=== PATIENT | male | born 1985 | race Caucasian/White ===

== ENCOUNTER → 2022-02-03 | Outpatient (CLI) | payer OTHER, SELFPAY | END | disposition home or self-care (01) | PROVIDERS: Referring Provider Otolaryngology; Visit Provider Otolaryngology | DX: G47.33 Obstructive sleep apnea (adult) (pediatric) (principal); R06.83 Snoring | CPT/HCPCS: 95810 ==

== ENCOUNTER → 2024-05-05 | Outpatient (CLI) | payer BC, SELFPAY ==
[2024-05-05 12:33] LABS: Vitamin B12 821 pg/mL (211-911); Vitamin D,25 Hydroxy 43.8 ng/mL
[2024-05-05 12:47] LABS: Absolute Neutrophil Count 4.3 X10^3/uL (2.0-7.7); Basophil# 0.03 X10^3/uL; Basophil% 0.5 % (0-1); Eosinophil# 0.04 X10^3/uL; Eosinophils% 0.6 % (0-5); Hematocrit 33.3 % (40-54); Lymphocyte % 19.4 % (19-41); Mean Corpuscular Hgb 21.6 pg (27.0-32.0); Mean Corpuscular Volume 71.8 fL (80-94); Mean Platelet Vol. 9.8 fl (6.2-12.0); Monocyte# 0.58 X10^3/uL; Monocyte% 9.4 % (0-10); NRBC Flagged by Analyzer 0 % (0-5); Neutrophil # 4.31 X10^3/uL (2.7-7.7); Neutrophil % 69.9 % (47-70); Platelet Count 433 K/mm3 (150-450); RBC Distribution Width CV 16.8 % (11.6-14.6); RBC Distribution Width SD 42.3 fl (35.1-43.9); Red Blood Count 4.64 M/mm3 (4.6-6.2); White Blood Count 6.2 K/mm3 (4.4-11.0)
== END | disposition home or self-care (01) ==
LOC: MFPLAB 10:20
PROVIDERS: PCP Family Medicine; Referring Provider Family Medicine; Visit Provider Family Medicine
DX: D64.9 Anemia, unspecified (principal)
CPT/HCPCS: 36415; 82306; 82607; 82746; 85025

== ENCOUNTER → 2024-06-22 | Outpatient (CLI) | payer BC, SELFPAY ==
[2024-06-22 17:50] LABS: Absolute Lymphocyte Count 1.73 X10^3/uL (0.83-4.51); Absolute Neutrophil Count 4.9 X10^3/uL (2.0-7.7); Basophil# 0.03 X10^3/uL; Basophil% 0.4 % (0-1); Eosinophil# 0.04 X10^3/uL; Eosinophils% 0.6 % (0-5); Hematocrit 43.4 % (40-54); Hemoglobin 14.1 g/dL (13.0-16.5); Lymphocyte # 1.73 X10^3/ul (0.83-4.51); Lymphocyte % 23.9 % (19-41); Mean Corp Hgb Conc 32.5 g/dL (32-36); Mean Corpuscular Hgb 25.4 pg (27.0-32.0); Mean Corpuscular Volume 78.1 fL (80-94); Mean Platelet Vol. 9.5 fl (6.2-12.0); Monocyte# 0.51 X10^3/uL; Monocyte% 7.1 % (0-10); NRBC Flagged by Analyzer 0 % (0-5); Neutrophil % 67.7 % (47-70); POSITIVE MORPHOLOGY YES; Platelet Count 313 K/mm3 (150-450); RBC Distribution Width SD 66.3 fl (35.1-43.9); Red Blood Count 5.56 M/mm3 (4.6-6.2); White Blood Count 7.2 K/mm3 (4.4-11.0)
[2024-06-22 18:14] LABS: Differential Indicated SCAN CRITERIA MET
[2024-06-22 18:16] LABS: Platelet Estimate ADEQUATE (ADEQ); Red Cell Morphology N CHROM NORMAL (NORM C&C)
[2024-06-22 18:17] LABS: Anisocytosis 1+
[2024-06-22 18:18] LABS: Microcytosis RARE
[2024-06-22 18:22] LABS: ALB/GLOB Ratio 1.5 RATIO (0.9-2.4); AST(SGOT) 18 U/L (<=37); Alanine Aminotransfer ALT/SGPT 17 U/L (<=46); Albumin, Serum 4.6 g/dL (3.5-5.0); Alkaline Phosphatase 52 U/L (40-129); Anion Gap 15 (5-15); BUN 12 mg/dL (4-19); BUN/Creat Ratio 12.8 RATIO (10-20); Calcium,Total 9.4 mg/dL (7.6-11.0); Carbon Dioxide 20.3 mmol/L (21.0-32.0); Chloride 104 mmol/L (98-108); Creatinine, Serum 0.95 mg/dL (0.70-1.20); EST Glomerular Filtration Rate 107 (>60); Ferritin 32 ng/mL (37-417); Globulin 3.1 g/dL (2.2-4.2); Glucose 93 mg/dL (70-99); Iron 186 ug/dL (65-175); Iron Binding Capacity,Total 366 ug/dL (250-450); Iron Binding Capacity,Unsat 180 ug/dL (228-428); Lipase 17 U/L (13-75); Potassium 3.9 mmol/L (3.3-5.1); Protein, Total 7.7 g/dL (5.9-8.4); Sodium Level 138 mmol/L (133-145); Total Bilirubin 0.57 mg/dL (0.00-1.30)
[2024-06-24 15:08] LABS: Endomysial Antibody IgA Negative (Negative); GGTP 13 IU/L (0-65); Immunoglobulin A 253 mg/dL (90-386); t-Transglutaminase IgA <2 U/mL (0-3)
== END | disposition home or self-care (01) ==
LOC: MTLAB 16:56
PROVIDERS: PCP Family Medicine; Referring Provider Family Medicine; Visit Provider Family Medicine
DX: D64.9 Anemia, unspecified (principal)
CPT/HCPCS: 36415; 80053; 82728; 82784; 82977; 83516; 83540; 83550; 83690; 85025; 86255

== ENCOUNTER 2024-06-27 14:26 | Emergency (ER) | payer BC, SELFPAY ==
[2024-06-27 14:27] VITALS: BP 127/93; PULSE 77; RESP 18; TEMP 36.9; O2SAT 97; BMI 29.2
--- NOTE | 2024-06-27 15:25 | CT_ITS ---
PROCEDURE: ABDOMEN/PELVIS W IV CONT ONLY (procedure code [id number]), 06/27/2024 REASON FOR EXAM: PAIN TECHNIQUE: CT abdomen and pelvis was performed with IV contrast. Multiplanar reformats were generated. IV CONTRAST: 99 mL Isovue-300 COMPARISON: None FINDINGS: Lung bases: Tiny hiatal hernia. Liver: Likely focal steatosis along the anterior falciform, normal variant. Tiny hypodensity in the right hepatic dome, too small to characterize, likely a cyst or hemangioma in the absence of known malignancy. Spleen: Unremarkable. Gallbladder: Unremarkable. Pancreas: Unremarkable. Adrenals: Unremarkable. Kidneys: Dysmorphic appearance of the midline pelvic right kidney. No hydronephrosis or urolithiasis identified. Bowel: No bowel dilatation or convincing inflammation. There are a few tiny diverticuli at along the rectosigmoid and distal descending colon. Cecum/appendix located in the right upper quadrant suggesting hypermobility. Normal caliber of the appendix without inflammation. Lymph nodes: Unremarkable. Vasculature: Retroaortic left renal vein, normal variant.. Peritoneum: Unremarkable. Bladder: Underdistended and suboptimally evaluated, grossly unremarkable. Reproductive Organs: Unremarkable. Body Wall: Tiny fat containing umbilical hernia.. Bones: Mild degenerative disc disease at L2-L3. Mildly exaggerated kyphosis with apex at L1. CT/Abdomen/Pelvis W IV Cont ONLY IMPRESSION: 1. No acute findings. 2. Incidental note of a pelvic and dysmorphic right kidney. 3. Additional description as above. Reading Location: [facility]
--- NOTE | 2024-06-27 15:26 | EDS_ITS ---
HPI HPI - GI History of Present Illness Chief Complaint: Abd Pain Narrative Narrative: 38-year-old male past medical history of anemia presents with his mother because of abdominal pain and back pain that he has had for months. He states he was diagnosed with back pain and he was found to be anemic. He started taking iron pills. Additionally, he started antibiotics over the last few days as well. He complains of increased nausea and pain radiating towards his mid back from the epigastrium. Has had intermittent nausea and vomiting as well. No previous abdominal surgeries. Still endorses flatulence. Occasional loose stool. He has an appointment with Dr. Nam with general surgery for upper endoscopy and colonoscopy for his abdominal pain. He had been referred by his primary care provider Dr. Valadez. Additionally, he complains of anxiety and recently started Lexapro. [facility] Medical History Depression Marijuana use Alcohol use Low iron Syncope Heartburn Shortness of breath on exertion Former smoker History of Holter monitoring Anxiety Palpitations Abdominal pain Fatigue Anemia Home Medications ?Medication ?Instructions ?Recorded ?Last Taken ?Type cyanocobalamin (vitamin B-12) 5,000 mcg PO QDAY Unknown History 5,000 mcg capsule ferrous sulfate 325 mg (65 mg 325 mg PO QDAY 05/23/24 Unknown History iron) tablet hydroxyzine pamoate 25 mg capsule 50 mg (2 x 25 mg) PO TID PRN PRN 06/27/24 Unknown Rx Anxiety #30 CAPSULES ondansetron 4 mg disintegrating 4 mg PO Q8H PRN PRN Na usea #10 tabs 06/27/24 Unknown Rx tablet Allergy/AdvReac Type Severity Reaction Status Date / Time No Known Allergies Allergy Verified 06/27/24 14:27 Family History Aunt Colon cancer Surgical History Hx of wisdom tooth extraction Social History Smoking Status: Former smoker alcohol intake: never substance use type: does not use ROS ROS ED ROS Narrative Constitutional: No fever, no chills. HEENT: No sore throat. No neck pain. No loss of vision. No rhinorrhea. Cardiovascular: No chest pain. No palpitations. No pedal edema. Respiratory: No cough, no shortness of breath. Abdominal: Positive epigastric abdominal pain x 1 month or longer. Intermittent nausea and vomiting. Positive loose stool. Genitourinary: No dysuria. No hematuria. Musculoskeletal: Positive mid back pain. Neurologic: No headaches. No dizziness. No lightheadedness. Skin: No rash. No change in color. Psychiatric: No depression. Positive anxiety. EXAM Physical Exam Narrative Exam Narrative: Afebrile. Vital signs noted. Nontoxic-appearing. Cardiovascular examination feels a regular rate and rhythm. Lungs are clear to auscultation bilaterally. Abdomen is soft and nontender without guarding or rebound. Positive bowel sounds. Able to transfer from chair and stand without difficulty. Neurological examination is nonfocal and nonlateralizing. Psychiatric examination shows mild anxiety. Musculoskeletal examination shows no vertebral point tenderness or bony step-off of the back. Const Vital Signs: 06/27/24 14:27 06/27/24 16:26 06/27/24 17:47 Temperature 98.5 F 98.2 F Temperature Source Oral Pulse Rate 77 54 L 60 Respiratory Rate 18 16 15 Blood Pressure 127/93 H 121/74 H 120/74 Blood Pressure Mean 104 89 89 Pulse Ox 97 98 99 Oxygen Delivery Method Room Air Room Air MDM MDM MDM Narrative Medical decision making narrative: Differential diagnosis includes but not limited to pancreatitis versus peptic ulcer disease versus gastritis versus anxiety. Patient has upper endoscopy and colonoscopy scheduled for Thursday, approximately 4 days from now. He states given giving his continued nausea, he could not wait. I have very low suspicion for obstruction. He has a nonsurgical abdomen. I reviewed his prior records. Nursing protocol labs were obtained and ordered. Will image his abdomen for looking for any acute process or surgical process. I reviewed his laboratory work and he has normal white count of 6.9 with hemoglobin normal at 14.6, hematocrit 44.7, platelet count 338. CMP is grossly unremarkable with normal sodium and potassium, LFTs are normal. Lipase normal at 23 so I doubt pancreatitis. I reviewed the radiology report of the CT of the abdomen and pelvis and there is no acute process. He does have a right dysmorphic pelvic kidney but I do not feel this is the cause of his pain. Gall bladder appears normal as well. At this point in time, he is resting comfortably in the chair that he was placed in the graves bed secondary to acuity. As his pain has been ongoing for months, I feel he can be discharged to follow-up with surgery for endoscopy on Thursday. I do feel he probably has more of a gastritis from taking iron, as well as an antibiotic. He was told to start [id number] omeprazole or Pepcid. Additionally, his mother was concerned that he just recently started Lexapro and a small dose and inquired about faster acting antianxiety meds. While I feel benzodiazepine should be started from his primary care provider or psychiatry, I did write him for Vistaril. I also wrote him for a few tablets of Zofran ODT's to help with any nausea that he may be getting from gastritis/peptic ulcer disease. I feel he can be discharged to follow-up. Return instructions to the emergency department were reviewed. Disposition is discharged home in stable condition. History & Record Review Discussion w/independent historian: Patient and Family Lab Data Attestation: I reviewed the patient's lab results. Labs: Laboratory Results - last 24 hr 06/27/24 15:30 WBC 6.9 RBC 5.73 Hgb 14.6 Hct 44.7 MCV 78.0 L MCH 25.5 L MCHC 32.7 RDW Std Deviation 64.2 H RDW Coeff of Raphael 23.8 H Plt Count 338 MPV 9.7 Immature Gran % (Auto) 0.100 Neut % (Auto) 62.6 Lymph % (Auto) 28.2 [place] % (Auto) 7.8 Eos % (Auto) 0.9 Baso % (Auto) 0.4 Absolute Neuts (auto) 4.3 Absolute Lymphs (auto) 1.95 Nucleated RBC % 0 Atypical Lymphocytes 1+ Anisocytosis 1+ Ovalocytes 2+ Colin Cells 1+ Sodium 138 Potassium 4.1 Chloride 103 Carbon Dioxide 21.5 Anion Gap 14 BUN 11 Creatinine 0.91 Estim Creat Clear Calc 143.80 Est GFR (MDRD) Non-Af 112 BUN/Creatinine Ratio 12.3 Glucose 99 Calcium 9.7 Total Bilirubin 0.38 AST 19 ALT 14 Alkaline Phosphatase 51 Total Protein 8.0 Albumin 4.8 Globulin 3.2 Albumin/Globulin Ratio 1.5 Lipase 23 Radiography Diagnostic Testing: Clinical Impression(s) from Imaging Studies Abdomen/Pelvis CT 06/27/24 15:25 IMPRESSION: 1. No acute findings. 2. Incidental note of a pelvic and dysmorphic right kidney. 3. Additional description as above. Reading Location: [id number] Discharge Plan Triage Chief Complaint: Abd Pain ED Provider: Juan Murray Dx/Rx/DC Orders Clinical Impression: Abdominal pain, Nausea, Gastritis, Pelvic kidney, Anxiety Instructions: ED Gastritis (Adult), ED Pain, Acute, Uncertain Cause, ED Abdominal Pain Unkn Cause Male... Prescriptions: New hydroxyzine pamoate 25 mg capsule 50 mg PO TID PRN PRN (Reason: Anxiety) Qty: 30 0RF ondansetron 4 mg tablet,disintegrating 4 mg PO Q8H PRN PRN (Reason: Nausea) Qty: 10 0RF No Action ferrous sulfate 325 mg (65 mg iron) tablet 325 mg PO QDAY cyanocobalamin (vitamin B-12) 5,000 mcg capsule 5,000 mcg PO QDAY Primary Care Provider: Mu Valadez Referrals: Bennett Nam MD [Med Staff - Active Staff] - Keep Yolanda appointment Mu Valadez MD [Primary Care Provider] - Activity Restrictions/Additional Instructions: Start taking [id number] omeprazole or Pepcid for the next 2 weeks. Follow-up with Dr. Nam regarding your upper and lower endoscopies as scheduled for Thursday. Return with new or worsening symptoms. Print Language: Bulgarian Disposition Disposition: Home, Self Care Discharge Date/Time: 06/27/24 17:48
[2024-06-27] MEDS: Ondansetron 4 MG/2 ML Vial IV (15:41)
[2024-06-27 16:02] LABS: Absolute Lymphocyte Count 1.95 X10^3/uL (0.83-4.51); Absolute Neutrophil Count 4.3 X10^3/uL (2.0-7.7); Basophil# 0.03 X10^3/uL; Basophil% 0.4 % (0-1); Eosinophil# 0.06 X10^3/uL; Eosinophils% 0.9 % (0-5); Hematocrit 44.7 % (40-54); Hemoglobin 14.6 g/dL (13.0-16.5); Lymphocyte # 1.95 X10^3/ul (0.83-4.51); Lymphocyte % 28.2 % (19-41); Mean Corp Hgb Conc 32.7 g/dL (32-36); Mean Corpuscular Hgb 25.5 pg (27.0-32.0); Mean Platelet Vol. 9.7 fl (6.2-12.0); Monocyte# 0.54 X10^3/uL; Monocyte% 7.8 % (0-10); NRBC Flagged by Analyzer 0 % (0-5); Neutrophil # 4.33 X10^3/uL (2.7-7.7); Neutrophil % 62.6 % (47-70); POSITIVE MORPHOLOGY YES; Platelet Count 338 K/mm3 (150-450); RBC Distribution Width CV 23.8 % (11.6-14.6); RBC Distribution Width SD 64.2 fl (35.1-43.9); Red Blood Count 5.73 M/mm3 (4.6-6.2); White Blood Count 6.9 K/mm3 (4.4-11.0)
[2024-06-27 16:04] LABS: Differential Indicated SCAN CRITERIA MET
[2024-06-27 16:12] LABS: ALB/GLOB Ratio 1.5 RATIO (0.9-2.4); AST(SGOT) 19 U/L (<=37); Alanine Aminotransfer ALT/SGPT 14 U/L (<=46); Albumin, Serum 4.8 g/dL (3.5-5.0); Alkaline Phosphatase 51 U/L (40-129); Anion Gap 14 (5-15); BUN 11 mg/dL (4-19); BUN/Creat Ratio 12.3 RATIO (10-20); Calcium,Total 9.7 mg/dL (7.6-11.0); Carbon Dioxide 21.5 mmol/L (21.0-32.0); Chloride 103 mmol/L (98-108); Creatinine, Serum 0.91 mg/dL (0.70-1.20); EST Glomerular Filtration Rate 112 (>60); Globulin 3.2 g/dL (2.2-4.2); Glucose 99 mg/dL (70-99); Lipase 23 U/L (13-75); Potassium 4.1 mmol/L (3.3-5.1); Sodium Level 138 mmol/L (133-145); Total Bilirubin 0.38 mg/dL (0.00-1.30)
[2024-06-27 16:26] VITALS: BP 121/74; PULSE 54; RESP 16; O2SAT 98
[2024-06-27 17:20] LABS: Anisocytosis 1+; Atypical Lymphocyte 1+ %
[2024-06-27 17:21] LABS: Ovalocyte 2+
[2024-06-27 17:22] LABS: Burr Cells 1+
[2024-06-27 17:47] VITALS: BP 120/74; PULSE 60; RESP 15; TEMP 36.8; O2SAT 99
== END 2024-06-27 17:48 | disposition home or self-care (01) ==
PROVIDERS: Emergency Provider Emergency Medicine; PCP Family Medicine; Referring Provider Emergency Medicine; Visit Provider Emergency Medicine
DX: K29.70 Gastritis, unspecified, without bleeding (principal); F41.9 Anxiety disorder, unspecified; Z87.891 Personal history of nicotine dependence
CPT/HCPCS: 74177; 80053; 83690; 85025; 96374; 99283; Q9967; A4216; J2405

== ENCOUNTER 2024-06-30 09:09 | Emergency (ER) | payer BC, SELFPAY ==
[2024-06-30 09:10] VITALS: BP 123/91; PULSE 89; RESP 16; TEMP 36.7; O2SAT 99; BMI 29.1
--- NOTE | 2024-06-30 09:18 | ED.VIS.GI ---
HPI HPI - GI History of Present Illness Chief Complaint: Abd Pain Informant: patient Abdominal Pain/Flank Pain Onset: Month(s) Context: Gradual Onset Timing: Continuous Quality: Aching and Stabbing Location: Diffuse Worsened by: Food Relieved by: Nothing Nausea/Vomiting/Emesis GI Symptom: Positive for Nausea; Negative for Vomiting Diarrhea/Melena/Hematochezia GI Symptom: Positive for Diarrhea; Negative for Melena or Hematochezia Associated Symptoms Associated Symptoms: Negative for Dysuria, Frequency or Hematuria Narrative Narrative: Patient presents with abdominal pain and nausea that has been constant for the past couple months. Patient states his pain has gradually gotten worse. Patient describes it as aching and stabbing. Patient states it is diffuse across his abdomen and radiates into his back and neck. Patient states it is worse after eating. Patient admits to nausea but denies any vomiting. Patient admits to diarrhea but denies any melena or hematochezia. Patient denies any dysuria, frequency, or hematuria. Patient does admit to some subjective chills. Patient denies any fevers. [facility] Medical History Depression Marijuana use Alcohol use Low iron Syncope Heartburn Shortness of breath on exertion Former smoker History of Holter monitoring Anxiety Palpitations Abdominal pain Fatigue Anemia Home Medications ?Medication ?Instructions ?Recorded ?Last Taken ?Type cyanocobalamin (vitamin B-12) 5,000 mcg PO QDAY 05/23/24 Unknown History 5,000 mcg capsule ferrous sulfate 325 mg (65 mg 325 mg PO QDAY 05/23/24 Unknown History iron) tablet hydroxyzine pamoate 25 mg capsule 50 mg (2 x 25 mg) PO TID PRN PRN 06/27/24 Unknown Rx Anxiety #30 CAPSULES ciprofloxacin HCl 500 mg tablet 500 mg PO BID #20 TABLETS 06/30/24 Unknown Rx metronidazole 500 mg tablet 500 mg PO Q6H #40 tabs 06/30/24 Unknown Rx ondansetron 4 mg disintegrating 4 mg PO Q8H PRN PRN Nausea #10 tabs 06/30/24 Unknown Rx tablet Allergy/AdvReac Type Severity Reaction Status Date / Time No Known Allergies Allergy Verified 06/30/24 09:14 Family History Aunt Colon cancer Surgical History Hx of wisdom tooth extraction Social History (Reviewed 06/30/24 @ 09: by Dr. Jarret Haynes DO) Smoking Status: Former smoker alcohol intake: never substance use type: does not use ROS ROS ED Constitutional Constitutional ED: Reports chills and subjective; Denies fever(s) Eyes Eyes: Reports blurry vision; Denies change in vision ENT ENT ED: Denies rhinorrhea or sore throat Cardiovascular Cardiovascular: Denies chest pain or palpitations Respiratory/Chest Respiratory/Chest: Reports dyspnea; Denies cough Gastrointestinal Gastrointestinal: Reports abdominal pain, diarrhea and nausea; Denies melena or vomiting Genitourinary Genitourinary ED: Denies dysuria or hematuria Musculoskeletal Musculoskeletal: Reports back pain and neck pain Integumentary Denies abscess or rash Neurologic Neurologic: Denies headache(s) or weakness Allergic/Immunologic Allergic/Immunologic ED: Denies mouth swelling or urticaria EXAM Physical Exam Const Vital Signs: 06/30/24 09:10 06/30/24 11:06 06/30/24 11:48 Temperature 98.1 F 97.9 F Temperature Source Temporal Pulse Rate 89 77 71 Respiratory Rate 16 16 Blood Pressure 123/91 H 123/72 H 130/86 H Blood Pressure Mean 101 89 100 Pulse Ox 99 98 98 Oxygen Delivery Method Room Air Room Air Positive well nourished and well developed Constitutional Narrative: BMI is 29.1 General Appearance ED: well developed and NAD HEENT Reports moist mucous membranes Neck supple and no JVD Resp normal respiratory effort and clear to auscultation bilaterally Cardio regular rate and regular rhythm GI non-distended Palpation: soft and tender epigastric, LUQ and RUQ; Negative for guarding or rebound tenderness present Extremity full ROM Neuro CN's II-XII intact bilaterally, moves all extremities, no sensory deficits noted and gait normal Sensorium / Orientation: alert Motor Exam: strength 5/5 throughout Psych mental status grossly normal and thought process normal MDM MDM MDM Narrative Medical decision making narrative: Differential diagnosis includes peptic ulcer disease, bowel obstruction, perforation, pancreatitis, cholecystitis, cholelithiasis, diverticulitis, ureteral calculus, pyelonephritis, viral illness, cardiac dysrhythmia, cardiac ischemia, and dehydration. CBC will be obtained to assess for leukocytosis and anemia. Comprehensive metabolic profile will be obtained to assess for hepatic function, renal function, and electrolyte abnormality. Lipase will be obtained to assess for pancreatitis. Urinalysis will be obtained to assess for urinary tract infection and hematuria. CT scan of the abdomen and pelvis will be obtained to assess for bowel obstruction, perforation, pancreatitis, and diverticulitis. EKG will be obtained to assess for cardiac dysrhythmia and cardiac ischemia. Lab Data Attestation: I reviewed the patient's lab results. Lab results narrative: CBC was reviewed and was within normal limits. Comprehensive metabolic profile was reviewed and was within normal limits. Lipase was reviewed and was normal at 21. Urinalysis was reviewed. There is no evidence of urinary tract infection or hematuria. Labs: Laboratory Results - last 24 hr 06/30/24 06/30/24 09:40 09:55 WBC 5.0 RBC 5.51 Hgb 14.1 Hct 42.3 MCV 76.8 L MCH 25.6 L MCHC 33.3 RDW Std Deviation 61.4 H RDW Coeff of Raphael 22.9 H Plt Count 294 MPV 9.2 Immature Gran % (Auto) 0.200 Neut % (Auto) 65.6 Lymph % (Auto) 24.1 [place] % (Auto) 8.5 Eos % (Auto) 1.2 Baso % (Auto) 0.4 Absolute Neuts (auto) 3.3 Absolute Lymphs (auto) 1.21 Nucleated RBC % 0 Anisocytosis 1+ Sodium 137 Potassium 3.8 Chloride 102 Carbon Dioxide 20.9 L Anion Gap 14 BUN 12 Creatinine 0.93 Estim Creat Clear Calc 140.57 Est GFR (MDRD) Non-Af 109 BUN/Creatinine Ratio 12.5 Glucose 105 H Calcium 9.6 Total Bilirubin 0.56 AST 15 ALT 13 Alkaline Phosphatase 45 Total Protein 7.4 Albumin 4.5 Globulin 2.9 Albumin/Globulin Ratio 1.6 Lipase 21 Urine Color Yellow Urine Clarity Clear Urine pH 6.5 Ur Specific [place] 1.015 Urine Protein 15 H Urine Glucose (UA) Normal Urine Ketones 15 H Urine Occult Blood Negative Urine Nitrite Negative Urine Bilirubin Negative Urine Urobilinogen Normal Ur Leukocyte Esterase Negative Urine RBC 0 SEEN Urine WBC 0 SEEN Ur Squamous Epith Cells 0 SEEN Urine Bacteria 0 SEEN Urine Mucus 0 SEEN Radiography Diagnostic Testing: Clinical Impression(s) from Imaging Studies Abdomen/Pelvis CT 06/30/24 09:30 IMPRESSION: Findings suggestive of colitis of the ascending and transverse colons and proximal descending colon. Right pelvic kidney. One or more dose reduction techniques were used (e.g., Automated exposure control, adjustment of the mA and/or kV according to patient size, use of iterative reconstruction technique). Reading Location: [facility] CT scan of the abdomen and pelvis was obtained. There are findings suggestive of colitis of the ascending and transverse colon as well as the proximal descending colon. There is no evidence of bowel obstruction or perforation. There is no free air or free fluid. This was interpreted by the radiologist and was also independently reviewed by myself. EKG Initial EKG: Attestation: I personally reviewed and interpreted this EKG as follows: Interpretation: Sinus Rhythm (80) and No Acute Injury Pattern Comments: EKG was obtained. On my independent interpretation, it showed a normal sinus rhythm with a rate of 80. MI interval, QRS interval, and QTc intervals were all normal. [place] was normal. There are no acute ST or T wave changes. Prior EKG tracings: available for review Prior: Unchanged (04/06/2024) Treatment and Re-Evaluation :: Patient was given IV fluids, morphine, and Zofran. Patient was feeling better on reevaluation. Patient was advised of his findings. Patient states he is scheduled for a endoscopy and colonoscopy tomorrow. Patient was instructed to follow-up with this. Patient was given a dose of Cipro and Flagyl here. Patient was given prescriptions for Cipro and Flagyl. Patient was also given a prescription for Zofran. Patient was instructed to return if worse in any way. Patient understood and was agreeable with the plan. All questions were answered. Discharge Plan Triage Chief Complaint: Abd Pain ED Provider: Jarret Haynes Dx/Rx/DC Orders Clinical Impression: Colitis, Abdominal pain Instructions: ED Understanding Colitis Prescriptions: New metronidazole 500 mg tablet 500 mg PO Q6H Qty: 40 0RF ciprofloxacin HCl 500 mg tablet 500 mg PO BID Qty: 20 0RF Continued ondansetron 4 mg tablet,disintegrating 4 mg PO Q8H PRN PRN (Reason: Nausea) Qty: 10 0RF No Action ferrous sulfate 325 mg (65 mg iron) tablet 325 mg PO QDAY cyanocobalamin (vitamin B-12) 5,000 mcg capsule 5,000 mcg PO QDAY hydroxyzine pamoate 25 mg capsule 50 mg PO TID PRN PRN (Reason: Anxiety) Qty: 30 0RF Stand Alone Forms: ED Work / School Excuse Primary Care Provider: Mu Valadez Referrals: Mu Valadez MD [Primary Care Provider] - 5-7 Days Print Language: Croatian Disposition Disposition: Home, Self Care Discharge Date/Time: 06/30/24 11:40
--- NOTE | 2024-06-30 09:30 | CT_ITS ---
PROCEDURE: ABDOMEN/PELVIS W IV CONT ONLY REASON FOR EXAM: ABDOMINAL PAIN Several month history. TECHNIQUE: Abdomen and pelvis CT with intravenous contrast. IV CONTRAST: 100 cc of Isovue-300. COMPARISON: Comparison is made with prior study dated June. FINDINGS: Lung bases: Clear Liver: Unremarkable. Gallbladder: Unremarkable. Spleen: Unremarkable. Pancreas: Unremarkable. Adrenals: Unremarkable. Kidneys: Right pelvic kidney. The kidneys are otherwise unremarkable. Bladder: Unremarkable. Bowel: No oral contrast was given. There appears to be thickening of the haustral pattern of the transverse colon and ascending colon. Mild thickening of the proximal descending colon. Colitis should be ruled out.. Small hiatal hernia. Appendix: Normal. Lymph nodes: No suspicious lymph node enlargement. Vasculature: Major vascular structures are unremarkable. Peritoneum / Retroperitoneum: No ascites. No free air. Bones: Unremarkable. CT/Abdomen/Pelvis W IV Cont ONLY IMPRESSION: Findings suggestive of colitis of the ascending and transverse colons and proxi mal descending colon. Right pelvic kidney. One or more dose reduction techniques were used (e.g., Automated exposure contr ol, adjustment of the mA and/or kV according to patient size, use of iterative reconstruction technique). Reading Location: [facility]
--- NOTE | 2024-06-30 09:30 | EKG12_ITS ---
Test Reason : ABD PAIN Blood Pressure : */* mmHG Vent. Rate : 80 BPM Atrial Rate : 80 BPM P-R Int : 152 ms QRS Dur : 78 ms QT Int : 388 ms P-R-T Axes : 66 73 65 degrees QTcB Int : 447 ms Normal sinus rhythm Normal ECG Confirmed by MALENA ROTHMAN, GATO ([id number]), commercial production editor LINDA GONSALEZ ([id number]) on 07/04/2024 10:54:43 AM Referred By: Confirmed By: GATO GUY MD
[2024-06-30] MEDS: 0.9% Normal Saline (1000mL) 1,000 ML 999 ML IV (09:41)
[2024-06-30] MEDS: Morphine 4 MG/ML Syringe IV (09:42)
[2024-06-30] MEDS: Ondansetron 4 MG/2 ML Vial IV (09:42)
[2024-06-30 09:52] LABS: Absolute Lymphocyte Count 1.21 X10^3/uL (0.83-4.51); Absolute Neutrophil Count 3.3 X10^3/uL (2.0-7.7); Basophil# 0.02 X10^3/uL; Basophil% 0.4 % (0-1); Eosinophil# 0.06 X10^3/uL; Eosinophils% 1.2 % (0-5); Hematocrit 42.3 % (40-54); Hemoglobin 14.1 g/dL (13.0-16.5); Lymphocyte # 1.21 X10^3/ul (0.83-4.51); Lymphocyte % 24.1 % (19-41); Mean Corp Hgb Conc 33.3 g/dL (32-36); Mean Corpuscular Hgb 25.6 pg (27.0-32.0); Mean Corpuscular Volume 76.8 fL (80-94); Mean Platelet Vol. 9.2 fl (6.2-12.0); Monocyte# 0.43 X10^3/uL; Monocyte% 8.5 % (0-10); NRBC Flagged by Analyzer 0 % (0-5); Neutrophil % 65.6 % (47-70); POSITIVE MORPHOLOGY YES; Platelet Count 294 K/mm3 (150-450); RBC Distribution Width CV 22.9 % (11.6-14.6); RBC Distribution Width SD 61.4 fl (35.1-43.9); Red Blood Count 5.51 M/mm3 (4.6-6.2)
[2024-06-30 09:53] LABS: Differential Indicated SCAN CRITERIA MET
[2024-06-30 10:18] LABS: ALB/GLOB Ratio 1.6 RATIO (0.9-2.4); AST(SGOT) 15 U/L (<=37); Alanine Aminotransfer ALT/SGPT 13 U/L (<=46); Albumin, Serum 4.5 g/dL (3.5-5.0); Alkaline Phosphatase 45 U/L (40-129); Anion Gap 14 (5-15); BUN 12 mg/dL (4-19); BUN/Creat Ratio 12.5 RATIO (10-20); Calcium,Total 9.6 mg/dL (7.6-11.0); Carbon Dioxide 20.9 mmol/L (21.0-32.0); Chloride 102 mmol/L (98-108); Creatinine, Serum 0.93 mg/dL (0.70-1.20); EST Glomerular Filtration Rate 109 (>60); Estimated Creatinine Clearance 140.57 ml/min (50-250); Globulin 2.9 g/dL (2.2-4.2); Glucose 105 mg/dL (70-99); Lipase 21 U/L (13-75); Potassium 3.8 mmol/L (3.3-5.1); Protein, Total 7.4 g/dL (5.9-8.4); Sodium Level 137 mmol/L (133-145); Total Bilirubin 0.56 mg/dL (0.00-1.30)
[2024-06-30 10:31] LABS: Bacteria 0 SEEN /hpf (None Seen); Color, Urine Yellow (Yellow); Glucose, Dipstick Normal (Normal); Ketone-Dipstick 15 mg/dl (Negative); Leukocyte Esterase-Dipstick Negative /ul (Negative); Mucous, Urine 0 SEEN /hpf (<or=2+); Nitrite-Dipstick Negative (Negative); Occult Blood-Urine Negative /ul (Negative); Protein-Dipstick 15 mg/dl (Negative); Specific Gravity, Urine 1.015 (1.002-1.030); Squamous Epithelial Cells - UA 0 SEEN /hpf (0-5); Urine Bilirubin Dipstick Negative (Negative); Urine Clarity Clear (Clear); Urine Urobilinogen Normal (Normal); Urine pH 6.5 (5.0 - 8.0); White Blood Cells 0 SEEN /hpf (0-5)
[2024-06-30 10:33] LABS: Anisocytosis 1+
[2024-06-30 10:40] LABS: Red Blood Cells-Urine 0 SEEN /hpf (0-5)
[2024-06-30 11:06] VITALS: BP 123/72; PULSE 77; O2SAT 98
[2024-06-30 11:48] VITALS: BP 130/86; PULSE 71; RESP 16; TEMP 36.6; O2SAT 98
== END 2024-06-30 11:40 | disposition home or self-care (01) ==
PROVIDERS: Emergency Provider Emergency Medicine; PCP Family Medicine; Visit Provider Emergency Medicine
DX: K52.9 Noninfective gastroenteritis and colitis, unspecified (principal); Z87.891 Personal history of nicotine dependence
CPT/HCPCS: 74177; 80053; 81001; 83690; 85025; 93005; 96361; 96374; 96375; 96376; 99282; Q9967; A4216; J2405

== ENCOUNTER 2024-07-01 08:57 | Day surgery (SDC) | payer BC, SELFPAY ==
--- NOTE | 2024-06-13 16:33 | PAT.ANE_ITS ---
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 When Was Last Pacemaker Check QUESTION #4 FULL TEXT: You/Your Family Experience fever (hyperthermia) with Anesthesia Last Oral Intake Last Oral intake: Last Oral Intake NPO since Meds taken in AM with sips of water? Meds patient instructed to take am of surgery PONV PONV - electrical engineer mep: PONV - electrical engineer mep Female No 06/13/24 10:41 HX of Motion Sickness No 06/13/24 10:41 HX of N/V After Surgery No 06/13/24 10:41 Non-Smoker Yes 06/13/24 10:41 Duration of Surgery greater No 06/13/24 10:41 than 60 minutes Number of Risk Factors 1 06/13/24 10:41 PONV Score Low Risk 06/13/24 10:41 Height & Weight Height & Weight: Anesthesia: Height & Weight Height 6 ft 2 in 05/23/24 08:17 Respiratory Assessment Respiratory Assessment - electrical engineer mep: Respiratory Tract Infection Hx - electrical engineer mep Hx Respiratory Tract Infection No 06/13/24 10:41 STOP Sleep Apnea STOP Sleep Apnea - electrical engineer mep: STOP Sleep Apnea - electrical engineer mep Hx Hypertension No 06/13/24 10:41 Hx Sleep Apnea Yes 06/13/24 10:41 CPAP Yes: NONCOMPLIANT 06/13/24 10:41 BIPAP No 06/13/24 10:41 Do you snore loudly (louder than talking or can be heard Do you often feel tired/ fatigued/ sleepy during daytime? Has anyone observed you stop breathing during sleep? STOP Results Positive 06/13/24 10:41 QUESTION #5 FULL TEXT : Do you snore loudly (louder than talking or can be heard through closed doors)? 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 Specify any problems Hx of Preganancy in last 3 N/A 06/13/24 10:41 Months Nurse Filling Out Transfusion DSCHRIBER 06/13/24 10:41 & Questions: Date: 06/13/24 06/13/24 10:41 Time: 10:43 06/13/24 10:41 Patient unable to answer at this time (ie. confused, unrespo /Reproduction History /Reproductive History - electrical engineer mep: /Reproductive Hx- electrical engineer mep Hx Now No 06/13/24 10:41 Gestational Age (in weeks): EDC: Hx Hx Para Hx Section SAB No 06/13/24 10:41 PFSH Medical History (Updated 06/13/24 @ 10:50 by Pearl Vallejo) Depression Marijuana use Alcohol use Low iron Syncope Heartburn Shortness of breath on exertion Former smoker History of Holter monitoring Anxiety Palpitations Abdominal pain Fatigue Anemia Home Medications ?Medication ?Instructions ?Recorded ?Last Taken ?Type cyanocobalamin (vitamin B-12) 5,000 mcg PO QDAY Unknown History 5,000 mcg capsule ferrous sulfate 325 mg (65 mg 325 mg PO QDAY 05/23/24 Unknown History iron) tablet Allergy/AdvReac Type Severity Reaction Status Date / Time No Known Allergies Allergy Verified 06/13/24 10:40 Family History (Updated 05/23/24 @ 08:16 by Elinor Benton LPN) Aunt Colon cancer Surgical History (Updated 06/13/24 @ 10:50 by Pearl Vallejo) Hx of wisdom tooth extraction Social History (Updated 05/23/24 @ 08:17 by Elinor Benton LPN) Smoking Status: Former smoker alcohol intake: never substance use type: does not use Audit: Pertinent Findings HISTORY of Pertinent Findings History of Pertinent Findings: Hgb 10 (04/2024) hgb 10.5 (03/2024) Pertinent Findings EKG Perinent findings: EKG 04/06/2024: Vent. Rate : 103 BPM Atrial Rate : 103 BPM P-R Int : 130 ms QRS Dur : 86 ms QT Int : 368 ms P-R-T Axes : 42 57 36 degrees QTcB Int : 482 ms Sinus tachycardia Otherwise normal ECG
[2024-07-01] VITALS (8 sets, daily range): BP systolic 106–125; BP diastolic 75–86; PULSE 71–103; RESP 16–18; TEMP 36.4; O2SAT 92–98; BMI 28.3
--- NOTE | 2024-07-01 09:24 | PCM.PRE.AN2 ---
ASA Classification* ASA Classification ASA Classification: 2 Assessment & Plan Anesthesia* Anesthesia Assessment Anesthesia Assessment: Discussed sedation and/or anesthesia options, risks, benefits, and alternatives with patient/parents/legal guardian/POA. Questions invited. The patient/parents/legal guardian/POA seems to understand and agrees to proceed with anesthesia plan. Reviewed the physical assessment, medical history, allergy history and patient home medications list prior to surgery/procedure/anesthetic and documented any changes. Performed airway and anesthesia risk assessments. Anesthesia Type Anesthesia Type: MAC Anesthesia Focused Assessment* Airway Assessment Mouth opens: >3 cm Mallampati Score: II Focused Labs Anesthesia Preop lab: CBC WBC 5.0 K/mm3 (4.4-11.0) 06/30/24 09:40 06/30/24 RBC 5.51 M/mm3 (4.6-6.2) 06/30/24 09:40 06/30/24 Hgb 14.1 g/dL (13.0-16.5) 06/30/24 09:40 06/30/24 Hct 42.3 % (40-54) 06/30/24 09:40 06/30/24 Plt Count 294 K/mm3 (150-450) 06/30/24 09:40 06/30/24 CHEMISTRY Potassium 3.8 mmol/L (3.3-5.1) 06/30/24 09:40 06/30/24 Sodium 137 mmol/L (133-145) 06/30/24 09:40 06/30/24 BUN 12 mg/dL (4-19) 06/30/24 09:40 06/30/24 Creatinine 0.93 mg/dL (0.70-1.20) 06/30/24 09:40 06/30/24 Glucose 105 mg/dL (70-99) H 06/30/24 09:40 06/30/24 COAG Pre-Assessment Diagnosis/Proposed Procedure Planned Operative Procedure(s): EGD/CSCOPE Anesthesia History Anesthesia History - 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 When Was Last Pacemaker Check QUESTION #4 FULL TEXT: You/Your Family Experience fever (hyperthermia) with Anesthesia Last Oral Intake Last Oral intake: Last Oral Intake NPO since Meds taken in AM with sips of water? Meds patient instructed to take am of surgery PONV PONV - business continuity global director: PONV - business continuity global director Female No 06/13/24 10:41 HX of Motion Sickness No 06/13/24 10:41 HX of N/V After Surgery No 06/13/24 10:41 Non-Smoker Yes 06/13/24 10:41 Duration of Surgery greater No 06/13/24 10:41 than 60 minutes Number of Risk Factors 1 06/13/24 10:41 PONV Score Low Risk 06/13/24 10:41 Height & Weight Height & Weight: Anesthesia: Height & Weight Height 6 ft 2 in 06/30/24 09:10 Respiratory Assessment Respiratory Assessment - business continuity global director: Respiratory Tract Infection Hx - business continuity global director Hx Respiratory Tract Infection No 06/13/24 10:41 STOP Sleep Apnea STOP Sleep Apnea - business continuity global director: STOP Sleep Apnea - business continuity global director Hx Hypertension No 06/13/24 10:41 Hx Sleep Apnea Yes 06/13/24 10:41 CPAP Yes: NONCOMPLIANT 06/13/24 10:41 BIPAP No 06/13/24 10:41 Do you snore loudly (louder than talking or can be heard Do you often feel tired/ fatigued/ sleepy during daytime? Has anyone observed you stop breathing during sleep? STOP Results Positive 06/13/24 10:41 QUESTION #5 FULL TEXT : Do you snore loudly (louder than talking or can be heard through closed doors)? 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 Specify any problems Hx of Preganancy in last 3 N/A 06/13/24 10:41 Months Nurse Filling Out Transfusion DSCHRIBER 06/13/24 10:41 & Questions: Date: 06/13/24 06/13/24 10:41 Time: 10:43 06/13/24 10:41 Patient unable to answer at this time (ie. confused, unrespo /Reproduction History /Reproductive History - business continuity global director: /Reproductive Hx- business continuity global director Hx Now No 06/13/24 10:41 Gestational Age (in weeks): EDC: Hx Hx Para Hx Section SAB No 06/13/24 10:41 PFSH Medical History Depression Marijuana use Alcohol use Low iron Syncope Heartburn Shortness of breath on exertion Former smoker History of Holter monitoring Anxiety Palpitations Abdominal pain Fatigue Anemia Home Medications ?Medication ?Instructions ?Recorded ?Last Taken ?Type cyanocobalamin (vitamin B-12) 5,000 mcg PO QDAY 05/23/24 Unknown History 5,000 mcg capsule ferrous sulfate 325 mg (65 mg 325 mg PO QDAY 05/23/24 Unknown History iron) tablet hydroxyzine pamoate 25 mg capsule 50 mg (2 x 25 mg) PO TID PRN PRN 06/27/24 Unknown Rx Anxiety #30 CAPSULES ciprofloxacin HCl 500 mg tablet 500 mg PO BID #20 TABLETS 06/30/24 Unknown Rx metronidazole 500 mg tablet 500 mg PO Q6H #40 tabs 06/30/24 Unknown Rx ondansetron 4 mg disintegrating 4 mg PO Q8H PRN PRN Nausea #10 tabs 06/30/24 Unknown Rx tablet Allergy/AdvReac Type Severity Reaction Status Date / Time No Known Allergies Allergy Verified 06/30/24 09:14 Family History Aunt Colon cancer Surgical History Hx of wisdom tooth extraction Social History Smoking Status: Former smoker alcohol intake: never substance use type: does not use Review of Systems (Anesthesia) ROS Narrative System reviewed and no additional complaints, except as documented.
[2024-07-01] MEDS: 0.9% Normal Saline (1000mL) 1,000 ML 15 ML IV (09:43)
--- NOTE | 2024-07-01 10:32 | HP.PCM_ITS ---
History and Physical Date of Admission: 07/01/24 Intake Vital Signs 02/21/2208:06 05/23/2507:17 Height 6 ft 2 in 6 ft 2 in Weight: 226 lb 3 oz BMI 29.0 BP 107/63 Blood Pressure Location Lt brachial Position Sitting Respiration 18 Pulse 64 Pulse Source Monitor Temp 97.6 F L Temp Source Temporal Pulse Oximetry (%) 100 Oxygen Delivery Method room air Intake Visit Reasons: SCREENING SCOPE - FHX Chief Complaint: screening scope- fhx Is patient in pain?: No Allergies No Known Allergies Allergy (Unverified 05/23/24 08:17) Medications ?Medication ?Instructions ?Recorded ?Confirmed ?Type cyanocobalamin (vitamin B-12) 5,000 mcg PO QDAY 05/23/24 05/23/24 Hist ory 5,000 mcg capsule ferrous sulfate 325 mg (65 mg 325 mg PO QDAY 05/23/24 05/23/24 History iron) tablet PFSH Medical History (Updated 05/23/24 @ 08:[address] Bennett Nam MD) Anxiety Palpitations Abdominal pain Fatigue Anemia Family History (Updated 05/23/24 @ 08:16 by Elinor Benton LPN) Aunt Colon cancer Social History (Updated 05/23/24 @ 08:17 by Elinor Benton LPN) Smoking Status: Never smoker alcohol intake: never substance use type: does not use HPI HPI HPI: Patient is a 38-year-old male here for family history of colon cancer as well as anemia. Patient notes that he has a lot of anxiety and he has not had any abdominal pain. He denies blood in his stool. He has never had a colonoscopy or EGD. Patient was noted to have a hemoglobin of 10 on last draw. He was started on iron. ROS General General: Yes fatigue; No weight change, appetite, colon cancer, breast cancer or weakness HEENT HEENT: No difficulty swallowing, eye injury, eye surgery, swollen glands or hoarseness Endo Endocrine: No thyroid disease, diabetes mellitus, thyroid cancer, Hair loss, heat intolerance or cold intolerance Skin Skin: No rash or changing moles Musc Musculoskeletal: Yes back problems; No arthritis, rheumatoid arthritis, gout or joint pain Cardio Cardiovascular: Yes palpitations; No murmur, pacemaker, heart disease, atrial fibrillation, high blood pressure, heart attack, heart stent, shortness of breat with exertion or chest pain Psych Psychiatric: Yes anxiety; No depression or hearing voices Resp Respiratory: Yes shortness of breath, Yes sleep apnea, No cough, No COPD, No asthma, No emphysema and No wheezing Gastro Gastrointestinal: Yes abdominal pain, No nausea or vomiting, No diarrhea, No constipation, No blood in stool, No acid reflux, No hemorrhoids, No ulcers, No gallbladder problem and No black,tarry stools Lewis Hematologic: No blood thinners, No blood disorders, No bleeding, Yes anemia and No blood clots Neuro Neurologic: No numbness, No tingling and No weakness Exam Const General: cooperative Orientation: alert and oriented x3 HENMT Head: normal to inspection Neck Neck: normal visual inspection and full ROM Chest Chest palpation & inspection: normal inspection of the chest Resp Effort & Inspection: normal respiratory effort Auscultation: clear to auscultation bilaterally Cardio Rate: regular rate Rhythm: regular rhythm GI Inspection: non-distended Palpation: soft and nontender Skin General: no rashes or lesions noted Neuro General: patient alert and patient oriented x3 Extrem General: full ROM Psych Appearance: grossly normal Mental Status: mental status grossly normal Assessment and Plan Assessment and Plan (1) Anemia: Status: Acute Qualifiers: Anemia type: iron deficiency Iron deficiency anemia type: unspecified iron deficiency Qualified Code(s): D50.9 - Iron deficiency anemia, unspecified Plan: The patient has iron deficiency anemia and a family history of colon cancer in his aunt. The patient does not note any blood in the stool or abdominal pain but he has anemia. I would like to perform upper and lower endoscopy to evaluate for a slow bleed. I explained endoscopy in detail to the patient. I explained the risks including but not limited to stroke or heart attack with anesthesia, perforation of the GI tract, bleeding, infection. I explained that any of these could necessitate further emergency surgery. The patient understands and all questions were answered sufficiently. The patient wishes to proceed with procedure. Bennett Nam MD Pager: [facility] [address] [place] [address], [address] [place] [address] Office: I have examined the patient and the H&P has been reviewed. There are no clinical changes since date of exam.
--- NOTE | 2024-07-01 11:06 | OP.EGD_ITS ---
Patient Name: Yuriy Rojas Procedure Date: 07/01/2024 10:39 AM Date of : 1985 Age: 38 Procedure: Upper GI endoscopy Indications: Iron deficiency anemia Providers: Bennett Nam MD Referring MD: Mu Valadez Md Medicines: Propofol per Anesthesia Patient Profile: This is a 38 year old male. Refer to note in patient chart for documentation of history and physical. Complications: No immediate complications. Procedure: Pre-Anesthesia Assessment: - Prior to the procedure, a History and Physical was performed, and patient medications and allergies were reviewed. The patient's tolerance of previous anesthesia was also reviewed. The risks and benefits of the procedure and the sedation options and risks were discussed with the patient. All questions were answered, and informed consent was obtained. Prior Anticoagulants: The patient has taken no anticoagulant or antiplatelet agents. After reviewing the risks and benefits, the patient was deemed in satisfactory condition to undergo the procedure. After obtaining informed consent, the endoscope was passed under direct vision. Throughout the procedure, the patient's blood pressure, pulse, and oxygen saturations were monitored continuously. The Colonoscope was introduced through the mouth, and advanced to the second part of duodenum. The upper GI endoscopy was accomplished without difficulty. The patient tolerated the procedure well. Scope In: 10:52:18 AM Scope Out: 10:54:11 AM Total Procedure Duration Time 0 hours 1 minute 53 seconds Findings: The esophagus was normal. The stomach was normal. The examined duodenum was normal. Impression: - Normal esophagus. - Normal stomach. - Normal examined duodenum. - No specimens collected. Recommendation: - Discharge patient to home. - Resume previous diet. - Continue present medications. Procedure Code(s): --- Professional --- 03850, Esophagogastroduodenoscopy, flexible, transoral; diagnostic, including collection of specimen(s) by brushing or washing, when performed (separate procedure) Diagnosis Code(s): --- Professional --- D50.9, Iron deficiency anemia, unspecified CPT copyright 2021 [employer]. All rights reserved. The codes documented in this report are preliminary and upon loading unit operator seating review may be revised to meet current compliance requirements. Bennett Nam MD 07/01/2024 11:06:00 AM This report has been signed electronically. Number of Addenda: 0 Note Initiated On: 07/01/2024 10:39 AM
--- NOTE | 2024-07-01 11:07 | OP.COLON_ITS ---
Patient Name: Yuriy Rojas Procedure Date: 07/01/2024 10:55 AM Date of : 1985 Age: 38 Procedure: Colonoscopy Indications: Gastrointestinal occult blood loss Providers: Bennett Nam MD Referring MD: Mu Valadez Md Medicines: Propofol per Anesthesia Patient Profile: This is a 38 year old male. Refer to note in patient chart for documentation of history and physical. Last Colonoscopy: none. The patient's first colonoscopy is today. Complications: No immediate complications. Procedure: Pre-Anesthesia Assessment: - Prior to the procedure, a History and Physical was performed, and patient medications and allergies were reviewed. The patient's tolerance of previous anesthesia was also reviewed. The risks and benefits of the procedure and the sedation options and risks were discussed with the patient. All questions were answered, and informed consent was obtained. Prior Anticoagulants: The patient has taken no anticoagulant or antiplatelet agents. After reviewing the risks and benefits, the patient was deemed in satisfactory condition to undergo the procedure. - Prior to the procedure, a History and Physical was performed, and patient medications and allergies were reviewed. The patient's tolerance of previous anesthesia was also reviewed. The risks and benefits of the procedure and the sedation options and risks were discussed with the patient. All questions were answered, and informed consent was obtained. Prior Anticoagulants: The patient has taken no anticoagulant or antiplatelet agents. After reviewing the risks and benefits, the patient was deemed in satisfactory condition to undergo the procedure. After I obtained informed consent, the scope was passed under direct vision. Throughout the procedure, the patient's blood pressure, pulse, and oxygen saturations were monitored continuously. The Colonoscope was introduced through the anus and advanced to the cecum, identified by appendiceal orifice and ileocecal valve. The colonoscopy was performed without difficulty. The patient tolerated the procedure well. The quality of the bowel preparation was adequate to identify polyps greater than 5 mm in size. The ileocecal valve, appendiceal orifice, and rectum were photographed. Scope In: 10:55:30 AM Scope Withdrawal Time 0 hours 5 minutes 12 seconds Scope Out: 11:04:06 AM Total Procedure Duration Time 0 hours 8 minutes 36 seconds Findings: The entire examined colon appeared normal on direct and retroflexion views. Impression: - The entire examined colon is normal on direct and retroflexion views. - No specimens collected. Recommendation: - Discharge patient to home. - Resume previous diet. - Continue present medications. - Repeat colonoscopy in 10 years for screening purposes. Procedure Code(s): --- Professional --- 36559, Colonoscopy, flexible; diagnostic, including collection of specimen(s) by brushing or washing, when performed (separate procedure) Diagnosis Code(s): --- Professional --- R19.5, Other fecal abnormalities CPT copyright 2021 [employer]. All rights reserved. The codes documented in this report are preliminary and upon electric distribution checker review may be revised to meet current compliance requirements. Bennett Nam MD 07/01/2024 11:07:23 AM This report has been signed electronically. Number of Addenda: 0 Note Initiated On: 07/01/2024 10:55 AM
--- NOTE | 2024-07-01 11:07 | OP.CCLET_ITS ---
07/01/2024 Mu Valadez Md Re : Upper GI endoscopy procedure for Yuriy Rojas Dear Allyson This procedure was performed on Monday, July 01, 2024. My impressions and recommendations are as follows: Impressions : - Normal esophagus. - Normal stomach. - Normal examined duodenum. - No specimens collected. Recommendations : - Discharge patient to home. - Resume previous diet. - Continue present medications. My findings are described in the full procedure note, which is enclosed. If I can be of further assistance, please feel free to contact me at Doctor phone number(s): , Work: . Sincerely, Bennett Nam MD 07/01/2024 11:06:00 AM This report has been signed electronically.
--- NOTE | 2024-07-01 11:08 | OP.CCLET_ITS ---
07/01/2024 Mu Valadez Md Re : Colonoscopy procedure for Yuriy Rojas Dear Allyson This procedure was performed on Monday, July 01, 2024. My impressions and recommendations are as follows: Impressions : - The entire examined colon is normal on direct and retroflexion views. - No specimens collected. Recommendations : - Discharge patient to home. - Resume previous diet. - Continue present medications. - Repeat colonoscopy in 10 years for screening purposes. My findings are described in the full procedure note, which is enclosed. If I can be of further assistance, please feel free to contact me at Doctor phone number(s): , Work: . Sincerely, Bennett Nam MD 07/01/2024 11:07:23 AM This report has been signed electronically.
--- NOTE | 2024-07-01 11:15 | PCM.POST.ANE ---
Anesthesia: Postop Eval I Current Vital Signs Temperature: 97.6 F Pulse Rate: 82 Blood Pressure: 108/75 Respiratory Rate: 18 Pulse Ox: 93 Oxygen Delivery Method: Room Air Assessment Airway patent: Yes Spontaneous unlabored respirations: Yes Mental status: Asleep nausea: No Vomiting: No Anesthesia Complication: No Fluid Hydration Crystalloid volume administer (ml): 800 Total IV fluid infused: 800 Progress Note Anesthesia document: Postop Eval 1 completed: Yes
--- NOTE | 2024-07-01 14:50 | PCM.POSTANE2 ---
Anesthesia Postop Eval I Sum Postop Eval Completion status Anesthesia document: Postop Eval 1 completed: Yes Anesthesia Postop Eval I Summary Anesthesia Postop Eval I Summary: Anesthesia Postop Eval I: Assessment Summary Airway patent Yes 07/01/24 11:16 [email or web address] Spontaneous unlabored Yes 07/01/24 11:16 [email or web address] respirations Mental status Asleep 07/01/24 11:16 [email or web address] nausea No 07/01/24 11:16 [email or web address] Vomiting No 07/01/24 11:16 [email or web address] Anesthesia Postop Eval I: Fluid Summary Crystalloid volume administer 800 07/01/24 11:16 [email or web address] (ml) Colloids volume administered ( ml) Blood Product volume administered (ml) Total IV fluid infused 800 07/01/24 11:16 [email or web address] Anesthesia Postop Eval I: Summary Notes Anesthesia Complication No 07/01/24 11:16 [email or web address] Anesthesia Complication Comment: Post-operative progress note Anesthesia: Postop Eval II Evaluation Mental status: Awake Pain Level: 0 nausea: No Vomiting: No
== END 2024-07-01 12:30 | disposition home or self-care (01) ==
LOC: EN 09:00 → AC 09:02
PROVIDERS: PCP Family Medicine; Referring Provider Family Medicine; Visit Provider Surgery
PROC: 0DJD8ZZ Inspection of Lower Intestinal Tract, Via Natural or Artificial Opening Endoscopic (ICD-10-PCS; CPT 45378; principal; 2024-07-01 10:10)
DX: D50.9 Iron deficiency anemia, unspecified (principal); Z80.0 Family history of malignant neoplasm of digestive organs
CPT/HCPCS: 43235; 45378; J2405

== ENCOUNTER → 2025-03-15 | Outpatient (CLI) | payer BC, SELFPAY ==
--- NOTE | 2025-03-15 10:55 | US_ITS ---
PROCEDURE: GALLBLADDER 03/15/2025 REASON FOR EXAM: RUQ PAIN. History of right pelvic kidney. TECHNIQUE: Procedure Code: USGB Modality: US Procedure: GALLBLADDER COMPARISON: CT Abdomen and Pelvis w/Contrast, 06/30/2024 FINDINGS: LIMITATIONS: Study limited due to bowel gas. LIVER ECHOGENICITY: Diffuse increase in hepatic parenchymal echogenicity. SIZE: Normal measuring 16.0 cm in length. CONTOUR: Smooth. MASS: None. PORTAL VEIN: Normal direction hepatopetal portal venous flow. GALLBLADDER SIZE: Normal. STONES: None. SLUDGE: None. WALL THICKNESS: Normal measuring 1.7 mm. PERICHOLECYSTIC FLUID: None. SONOGRAPHIC MEMBRENO'S SIGN: Negative. BILE DUCTS: Normal with the CBD measuring 3.0 mm in diameter. PANCREAS: The pancreas is not visualized due to overlying bowel gas. RIGHT PELVIC KIDNEY: Not visualized due to overlying bowel gas. ASCITES/EFFUSIONS: None. OTHER: None. US/Gallbladder IMPRESSION: Diffusely hyperechoic liver, suggesting hepatic steatosis, although other diffu se liver diseases can have this appearance. Reading Location: [id number]
== END | disposition home or self-care (01) ==
LOC: US 10:52
PROVIDERS: PCP Family Medicine; Referring Provider Surgery; Visit Provider Surgery
DX: R11.0 Nausea (principal); R10.11 Right upper quadrant pain
CPT/HCPCS: 76705